=== PATIENT | female | born 1960 | race Caucasian/White ===

== ENCOUNTER 2023-08-25 14:22 | Emergency (ER) | payer MEDICARE, SELFPAY ==
[2023-08-25] VITALS (8 sets, daily range): BP systolic 94–127; BP diastolic 53–62; PULSE 72–87; TEMP 37.1; O2SAT 96; BMI 21.3
--- NOTE | 2023-08-25 14:56 | XR_ITS ---
The [address] [address] Patient Name: ENRIQUETA WILLS MRN: [id number] date: 1960 Sex: F Assigned Patient Location: ER Current Patient Location: ER Accession/Order Number: [id number] Exam Date: 08/25/2023 15:40 Report Date: 08/25/2023 16:12 At the request of: DILCIA JEFFERY Procedure: XR chest 1V CLINICAL HISTORY: Chest pain COMPARISON: Chest radiograph 12/11/2020 FINDINGS: Portable AP view of the chest obtained. Cardiomediastinal silhouette is normal. Lungs are clear, no evidence of infiltrate, suspicious nodule, or mass. No evidence of significant pleural fluid on this portable projection. No acute bony abnormality. XR/XR chest 1V IMPRESSION: No acute abnormality. Electronically authenticated by: EMMIE GOMEZ Date: 08/25/2023 16:12
--- NOTE | 2023-08-25 15:01 | ECG_ITS ---
The [facility] Test Date: 2023-08-25 Pat Name: ENRIQUETA WILLS Department: Room: - Gender: Female [employer]: : 1960 Requested By: [id number] Order Number: [id number] Reading MD: MIKALA MARTINEZ Measurements Intervals [place] Rate: 83 P: 83 [place]: 134 QRS: 79 QRSD: 86 T: 76 QT: 388 QTc: 427 Interpretive Statements 1100 Sinus rhythm 2420 RSR (QR) in lead V1/V2, consistent with right ventricular conduction delay [address] depression 9150 abnormal ECG Compared to ECG 12/11/2020 16:07:13 ST (T wave) deviation now present Electronically Signed On 08-26-2023 6:59:01 EDT by MIKALA MARTINEZ
--- NOTE | 2023-08-25 15:03 | ED_ITS ---
HPI HPI - General Adult General Chief complaint: Back Pain/Injury Stated complaint: RIB PAIN Time Seen by Provider: 08/25/23 14:51 Source: patient Mode of arrival: walk-in Limitations: no limitations History of Present Illness HPI narrative: Patient is a 62-year-old female , 1 pack/day smoker, HTN, presents with right- sided pleuritic chest pain, symptoms started in the morning 3 days ago constant, worse with deep breath. She denies recent illness. No productive cough. Patient notes pain can be severe with a deeper the breath. Patient denies injury, denies dysuria states she has decreased urine output. She has been sleeping on a couch but does not feel that contributed to symptoms. Patient denies any abdominal pain. She appears nontoxic in no acute distress but is holding her right side. Denies skin rash.No radiation of pain reported. Location: Reports chest (right sided) Quality: Reports stabbing and sharp Pain Consistency: Reports constant Relieving factors: Reports none Exacerbating factors: Reports other (deep breath) Treatments prior to arrival: Reports none Related Data Previous Rx's ?Medication ?Instructions ?Recorded prednisone 20 mg tablet 40 mg (2 x 20 mg) PO DAILY 5 days 08/25/23 #10 tabs Allergies Allergy/AdvReac Type Severity Reaction Status Date / Time Penicillins AdvReac Mild Verified 08/25/23 14:26 Sulfa (Sulfonamide AdvReac Mild Verified 08/25/23 14:26 Antibiotics) Opioid HPI Opioid Management Most Recent Opioid Data: Last Pain Scale 9 08/25/23 16:19 Last MAR Pain Assessment 08/25/23 15:44 Review of Systems ROS Constitutional Denies: fever or chills Eyes Denies: change in vision or blurry vision Ears, nose, mouth, and throat Denies: throat pain, neck pain or throat swelling Cardiovascular Reports: chest pain; Denies: palpitations, edema, swelling of feet/ankles, shortness of breath with exertion or shortness of breath when lying down Respiratory Denies: shortness of breath or cough Gastrointestinal Denies: abdominal pain, nausea or vomiting Genitourinary Reports: decreased urine ouput; Denies: painful urination Musculoskeletal Denies: back pain (right lateral chest wall) or neck pain Integumentary/Breast Denies: rash Neurological Denies: headache Psychiatric Denies: anxiety Hematologic/Lymphatic Denies: easy bruising Allergic/Immunologic Denies: hives Exam Narrative Exam Narrative: Nurses notes and vital signs reviewed and patient is not hypoxic. General: The patient appears well and in no apparent distress. Patient is resting comfortably on cart. Skin: Warm, dry, no pallor noted.No skin rash or zoster like rash. Head: Normocephalic, atraumatic Neck: Supple, trachea mid-line, no tenderness, no lymphadenopathy Eye: Pupils are equal, round and reactive to light, EOMI Ears, Nose, Mouth, and Throat: TM are clear, normal light reflex, oral mucosa is moist, no posterior oropharynx erythema or hypertrophy, uvula is mid-line Cardiovascular: Regular Rate and Rhythm Respiratory: Patient is in no distress, no accessory muscle use, lungs are clear to auscultation, no wheezing, rales or rhonchi. Chest Wall: + right anterior and lateral chest wall ( pt denies breast tenderness) Back: non-tender, No CVA tendrness Musculoskeletal: normal ROM, no tenderness, no swelling GI: Normal bowel sounds, no tenderness to palpation, no masses appreciated. No rebound, guarding, or rigidity noted.No splenic or hepatic tenderness Neurological: A&O x4 Psychiatric: Cooperative Constitutional Vital Signs, click to edit/add: Last Vital Signs Temp 98.8 F 08/25/23 14:27 Pulse 80 08/25/23 17:00 Resp 14 08/25/23 17:00 BP 94/53 08/25/23 17:00 Pulse Ox 96 08/25/23 14:27 O2 Del Method Room Air 08/25/23 14:27 Course Vital Signs Vital signs: Vital Signs Temperature 98.8 F 08/25/23 14:27 Pulse Rate 81 08/25/23 14:27 Respiratory Rate 18 08/25/23 14:27 Blood Pressure 126/58 08/25/23 14:27 Pulse Oximetry 96 08/25/23 14:27 Oxygen Delivery Method Room Air 08/25/23 14:27 Temperature 98.8 F 08/25/23 14:27 Pulse Rate 80 08/25/23 17:00 Respiratory Rate 14 08/25/23 17:00 Blood Pressure 94/53 08/25/23 17:00 Pulse Oximetry 96 08/25/23 14:27 Oxygen Delivery Method Room Air 08/25/23 14:27 Medical Decision Making MDM Narrative Medical decision making narrative: Patient presents with significant pleuritic chest pain, she denies any recent flights or long travels or surgeries, no prior history of PE or DVT. She does smoke 1 pack/day. She notes it is painful to breathe but denies being overly short of breath. She denies any cardiac history other than hypertension and cholesterol. Patient notes symptoms constant for 3 days. Portable chest x-ray performed, patient medicated with Toradol and [place] for pain laboratory studies pending. Reviewed laboratory studies, patient reports feeling better with medication given. We will start her on a prednisone burst with her history and she may take Tylenol for pain. We discussed pleurisy has a working diagnosis with her symptoms. She will be vigilant for any development of a rash with the possibility of early shingles discussed. Patient will return to the ER if symptoms worsen or new symptoms develop. Patient will try to find a better sleeping accommodation. Pt did not / unable to provide urine sample, denies symptoms may follow up to pcp for testing if symptoms develop. The patient is to followup with primary care physician in next 2-3 days or to return to the emergency department should any of the signs or symptoms worsen or new symptoms develop. Patient had questions answered. The patient agrees with the following Diagnosis and Treatment plan and the patient will be discharged home. Lab Data Lab results reviewed: Yes I reviewed the patient's lab results Labs: Lab Results 08/25/23 Range/Units 15:35 WBC 10.2 (4.0-11.0) 10^3/uL RBC 4.55 (4.20-5.40) 10^6/uL Hgb 15.0 (12.0-16.0) g/dL Hct 43.8 (36.0-48.0) % MCV 96.3 (81.0-99.0) fL MCH 33.0 (26.7-34.0) pg MCHC 34.2 (29.9-35.2) g/dL RDW 14.5 (11.0-15.0) % Plt Count 317 (150-450) 10^3/uL MPV 8.6 L (9.5-13.5) fL Neut % (Auto) 56.6 (43.0-75.0) % Lymph % (Auto) 32.4 (20.5-60.0) % [place] % (Auto) 8.7 (1.7-12.0) % Eos % (Auto) 1.4 (0.9-7.0) % Baso % (Auto) 0.6 (0.2-2.0) % Neut # (Auto) 5.8 (1.4-6.5) 10^3/uL Lymph # (Auto) 3.3 (1.2-3.8) 10^3/uL [place] # (Auto) 0.9 H (0.3-0.8) 10^3/uL Eos # (Auto) 0.1 (0.0-0.7) 10^3/uL Baso # (Auto) 0.1 (0.0-0.1) 10^3/uL Abs Immat Gran (auto) 0.03 (0.00-0.03) 10^3/uL Imm/Tot Granulo (auto) 0.3 (0.0-0.5) % D-Dimer 0.49 (<=0.59) mg/L FEU Sodium 134 L (136-145) mmol/L Potassium 3.8 (3.5-5.1) mmol/L Chloride 96 L (98-107) mmol/L Carbon Dioxide 30.4 (21.0-32.0) mmol/L Anion Gap 11.4 BUN 10.0 (7.0-18.0) mg/dL Creatinine 0.80 (0.55-1.02) mg/dL Est GFR ( Amer) >60 (>=60) Est GFR (Non-Af Amer) >60 (>=60) BUN/Creatinine Ratio 12.5 Glucose 98 (74-106) mg/dL Calcium 9.7 (8.5-10.1) mg/dL Total Bilirubin 0.5 (0.2-1.0) mg/dL AST 26 (15-37) U/L ALT 18 (14-59) U/L Alkaline Phosphatase 109 (46-116) U/L Troponin I High Sens 6.5 (4.0-51.3) pg/mL Total Protein 7.7 (6.4-8.2) g/dL Albumin 4.0 (3.4-5.0) g/dL Globulin 3.7 g/dL Albumin/Globulin Ratio 1.1 Lipase 29.0 (16.0-77.0) U/L Imaging Data Chest x-ray: Radiologist's impression: ITS Impressions Chest X-Ray 08/25/23 14:56 IMPRESSION: No acute abnormality. Electronically authenticated by: EMMIE GOMEZ Date: 08/25/2023 16:12 ECG Data Attestation: I personally reviewed and interpreted this ECG as follows: Interpretation: EKG interpretation: Emergency Department physician interpretation, normal sinus rhythm 83 bpm, no ectopy, no ST segment elevation, normal axis. Discharge Plan Discharge Stand Alone Forms: Portal Instructions Chief Complaint: Back Pain/Injury Clinical Impression: Right-sided chest pain, Pleurisy Patient Disposition: Home, Self-Care Time of Disposition Decision: 17:16 Condition: Good Prescriptions / Home Meds: New prednisone 20 mg tablet 40 mg PO DAILY 5 Days Qty: 10 0RF Print Language: Japanese Instructions: Pleurisy (ED) Referrals: [facility] [Primary Care Provider] - As soon as possible
[2023-08-25 15:43] LABS: Basophils Absolute Auto 0.1 10^3/uL (0.0-0.1); Basophils Percent Auto 0.6 % (0.2-2.0); Eosinophils Absolute Auto 0.1 10^3/uL (0.0-0.7); Eosinophils Percent Auto 1.4 % (0.9-7.0); Hematocrit 43.8 % (36.0-48.0); Immature Granulocytes Abs Auto 0.03 10^3/uL (0.00-0.03); Immature Granulocytes Pct Auto 0.3 % (0.0-0.5); Lymphocytes Absolute Auto 3.3 10^3/uL (1.2-3.8); Lymphocytes Percent Auto 32.4 % (20.5-60.0); Mean Corpuscular HGB Conc 34.2 g/dL (29.9-35.2); Mean Corpuscular Volume 96.3 fL (81.0-99.0); Mean Platelet Volume 8.6 fL (9.5-13.5); Monocytes Absolute Auto 0.9 10^3/uL (0.3-0.8); Monocytes Percent Auto 8.7 % (1.7-12.0); Neutrophils Absolute Auto 5.8 10^3/uL (1.4-6.5); Neutrophils Percent Auto 56.6 % (43.0-75.0); Platelet Count 317 10^3/uL (150-450); Red Blood Count 4.55 10^6/uL (4.20-5.40); Red Cell Distribution Width 14.5 % (11.0-15.0); White Blood Count 10.2 10^3/uL (4.0-11.0)
[2023-08-25] MEDS: ONDANSETRON PF 4 MG/2 ML VIAL IV (15:44)
[2023-08-25] MEDS: 0.9 % SODIUM CHLORIDE 1,000 ML 999 ML IV (15:44)
[2023-08-25] MEDS: KETOROLAC TROMETHAMINE 30 MG/ML VIAL IVP (15:44)
[2023-08-25] MEDS: HYDROCODONE/ACET 5-325 MG TABLET 1 TAB PO (15:44)
[2023-08-25 15:57] LABS: Anion Gap 11.4
[2023-08-25 15:59] LABS: Alanine Aminotransferase 18 U/L (14-59); Albumin Globulin Ratio 1.1; Alkaline Phosphatase 109 U/L (46-116); Aspartate Amino Transferase 26 U/L (15-37); BUN Creatinine Ratio 12.5; Bilirubin Total 0.5 mg/dL (0.2-1.0); Calcium 9.7 mg/dL (8.5-10.1); Carbon Dioxide 30.4 mmol/L (21.0-32.0); Chloride 96 mmol/L (98-107); Estimated GFR (African America >60 (>=60); Estimated GFR (Non-African Ame >60 (>=60); Globulin 3.7 g/dL; Glucose 98 mg/dL (74-106); Potassium 3.8 mmol/L (3.5-5.1); Sodium 134 mmol/L (136-145); Total Protein 7.7 g/dL (6.4-8.2); Troponin I High Sensitivity 6.5 pg/mL (4.0-51.3)
[2023-08-25 16:03] LABS: D Dimer 0.49 mg/L FEU (<=0.59)
[2023-08-25] MEDS: PREDNISONE 20 MG TABLET 40 MG PO (17:37)
== END 2023-08-25 17:47 | disposition home or self-care (01) ==
PROVIDERS: Personal Emergency Response Attendant; Emergency Provider Emergency Medicine Emergency Medical Services
DX: R07.81 Pleurodynia (principal); R07.9 Chest pain, unspecified; F17.210 Nicotine dependence, cigarettes, uncomplicated
CPT/HCPCS: 36415; 71045; 80053; 83690; 84484; 85025; 85378; 93005; 96374; 96375; 99285